=== PATIENT | male | born 1985 | race African-American/Black ===

== ENCOUNTER 2019-04-28 11:43 | Emergency (ER) | payer MEDICAID ==
[~2019-04-28] VITALS: Ht 172.7 cm; Wt 85.0 kg
[2019-04-28] MEDS ORDERED: ONDANSETRON HCL 4MG/2ML INJ IV STA (15:20)
[2019-04-28] MEDS ORDERED: SODIUM CHLORIDE 0.9% 1,000 ML IV ONE (15:20)
[2019-04-28] MEDS ORDERED: VISCOUS LIDOCAINE 2% 15 ML UDC PO STA (15:20)
[2019-04-28] MEDS ORDERED: MAGNESIUM/ALUMINUM HYDROXIDE/SIMETHICONE 30ML UDC PO STA (15:20)
[2019-04-28] MEDS ORDERED: FAMOTIDINE 20MG/2ML VIAL IV STA (15:20)
[2019-04-28 15:42] LABS: CLARITY URINE CLOUDY (CLEAR); COLOR URINE YELLOW (YELLOW); KETONES URINE 1+ (NEGATIVE); LEUKOCYTE ESTERASE URINE NEGATIVE (NEGATIVE); NITRITE URINE NEGATIVE (NEGATIVE); OCCULT BLOOD URINE NEGATIVE (NEGATIVE); PROTEIN URINE NEGATIVE (NEGATIVE); SPECIFIC GRAVITY URINE 1.026 (1.005-1.030)
[2019-04-28 15:46] LABS: CHLORIDE 102 mEq/L (98-107)
[2019-04-28 15:48] LABS: BASOPHILS % 0.4 % (0.0-2.0); HEMATOCRIT. 43.6 % (42.0-52.0); HEMOGLOBIN. 15.1 g/dL (14.0-18.0); LYMPHOCYTES % 8.2 % (20.0-50.0); MEAN CORPUSCULAR HEMOGLOBIN 30.6 pg (28.0-32.0); MEAN CORPUSCULAR VOLUME 88.3 fL (80.0-94.0); MEAN PLATELET VOLUME 7.6 fl (7.4-10.4); MONOCYTES % 3.6 % (2.0-8.0); NEUTROPHILS % 87.8 % (40.0-76.0); PLATELET 193 x1000/uL (130-400); RED BLOOD CELL COUNT 4.94 mill/uL (4.7-6.1); RED CELL DISTRIBUTION WIDTH 13.4 % (11.6-14.6)
[2019-04-28 15:59] LABS: PROTHROMBIN TIME 10.3 sec (9.6-11.0)
[2019-04-28] MEDS ORDERED: METOCLOPRAMIDE HCL 10MG/2ML VIAL IV ONE (17:45)
[2019-04-28] MEDS ORDERED: CEFUROXIME AXETIL 250MG TABLET PO ONE (17:45)
[2019-04-28 18:18] VITALS: BP 129/57
== END 2019-04-28 18:22 | disposition home or self-care (01) ==
LOC: ER 11:43
DX: N39.0 Urinary tract infection, site not specified (principal)
CPT/HCPCS: 36415; 80053; 81003; 83690; 85025; 85610; 96361; 96374; 96375; 99283; J2405; J2765; J3490; J7030; Z7610

== ENCOUNTER 2025-06-29 18:52 | Emergency (ER) | payer MEDICAID ==
[~2025-06-29] VITALS: Ht 170.2 cm; Wt 75.0 kg
[2025-06-29 18:54] VITALS: O2SAT 97
[2025-06-29 19:33] LABS: BASOPHILS % 0.7 % (0.0-2.0); EOSINOPHILS % 1.9 % (0.0-5.0); HEMATOCRIT. 44.7 % (42.0-52.0); HEMOGLOBIN. 14.9 g/dL (14.0-18.0); LYMPHOCYTES % 41.9 % (20.0-50.0); MEAN PLATELET VOLUME 7.3 fl (7.4-10.4); MONOCYTES % 11.9 % (2.0-8.0); NEUTROPHILS % 43.6 % (40.0-76.0); PLATELET 262 x1000/uL (130-400); RED BLOOD CELL COUNT 4.95 mill/uL (4.7-6.1); RED CELL DISTRIBUTION WIDTH 14.0 % (11.6-14.6)
[2025-06-29 19:43] LABS: CREATININE 1.3 mg/dL (0.6-1.3); UREA NITROGEN BLOOD 14 mg/dL (9-23)
[2025-06-29] MEDS: MAGNESIUM/ALUMINUM HYDROXIDE/SIMETHICONE 30ML UDC PO ONE (20:13)
[2025-06-29] MEDS: ONDANSETRON 4MG ODT PO ONE (20:13)
[2025-06-29 20:27] LABS: ASPARTATE AMINOTRANSFERASE 31 IU/L (<34); BILIRUBIN DIRECT 0.1 mg/dL (<=3.0); BILIRUBIN TOTAL 0.4 mg/dL (0.1-1.0); PROTEIN TOTAL 7.7 g/dL (6.0-8.3)
[2025-06-29 21:56] VITALS: BP 136/78; PULSE 72; RESP 18; TEMP 36.8; O2SAT 98
== END 2025-06-29 21:58 | disposition home or self-care (01) ==
LOC: ER 18:52
DX: S52.692A Other fracture of lower end of left ulna, initial encounter for closed fracture (principal); J45.909 Unspecified asthma, uncomplicated; F12.90 Cannabis use, unspecified, uncomplicated; X58.XXXA Exposure to other specified factors, initial encounter; Y93.89 Activity, other specified; Y92.89 Other specified places as the place of occurrence of the external cause; Y99.8 Other external cause status
CPT/HCPCS: 99284; 80076; 80048; 83690; 85025; 36415; 73110; 29125; Q0162; A6449